=== PATIENT | female | born 1990 | race Caucasian/White ===

== ENCOUNTER 2021-12-12 11:25 | Inpatient (IN) | payer OTHER ==
[2021-12-12] MEDS ORDERED: ELECTROLYTE-148 SOLN 1,000 ML IV SCH (12:30)
[2021-12-12 12:38] VITALS: BMI 29.9
[2021-12-12] MEDS ORDERED: CITRIC ACID/SODIUM CITRATE 30 ML UNIT-DOSE CUP PO ONE (13:11)
[2021-12-12] MEDS ORDERED: morphine SULFATE (PF) 1 MG/2 ML SYRINGE ONE (13:24)
[2021-12-12] MEDS ORDERED: PHENYLEPHRINE HCL 10 MG/1 ML SINGLE DOSE VIAL ONE (13:27)
[2021-12-12] MEDS ORDERED: ePHEDrine SULFATE 50 MG/1 ML AMPULE ONE (13:51)
[2021-12-12] MEDS ORDERED: ACETAMINOPHEN 325 MG TABLET (FP) PO PRN (14:15)
[2021-12-12] MEDS ORDERED: IBUPROFEN 800 MG/8 ML IJ IVPB PRN (14:15)
[2021-12-12] MEDS ORDERED: METHYLERGONOVINE MALEATE 0.2 MG/1 ML AMP IM PRN (14:15)
[2021-12-12] MEDS ORDERED: OXYTOCIN 20 UNITS in 0.9% NS 20 UNIT/1,000 ML INFUS.BAG IV ONE (14:27)
[2021-12-12] MEDS ORDERED: morphine SULFATE/PF 1 MG/2 ML (2cc Syringe - QUVA) EP ONE (14:29)
[2021-12-12] MEDS: OXYTOCIN 20 UNITS in 0.9% NS 20 UNIT/1,000 ML INFUS.BAG IV SCH ×2 (14:30→21:34)
[2021-12-12] MEDS ORDERED: ONDANSETRON 4 MG/2 ML VIAL IVPUSH PRN (14:31)
[2021-12-12] MEDS ORDERED: MISOPROSTOL 200 MCG TABLET ONE (17:40)
[2021-12-12] MEDS ORDERED: MISOPROSTOL 100 MCG TABLET ONE (17:40)
[2021-12-12] MEDS ORDERED: MISOPROSTOL 200 MCG TABLET PO ONE (17:40)
[2021-12-12] MEDS ORDERED: CARBOPROST TROMETHAMINE 250 MCG/ML AMPUL IM ONE (19:45)
[2021-12-12] MEDS: FERROUS SO4 325 MG TABLET (FP) PO SCH (21:44)
[2021-12-13] MEDS ORDERED: LOPERAMIDE HCL 2 MG CAPSULE PO ONE (01:10)
[2021-12-13] MEDS ORDERED: oxyCODONE HCL 5 MG TABLET PO PRN (02:15)
[2021-12-13] MEDS ORDERED: FLU VACC QS2022-23(6MOS UP)/PF 60 MCG/0.5 ML SYRINGE IM ONE (10:00)
[2021-12-13] MEDS ORDERED: DIPHTH,PERTUSS(ACELL),TET 0.5 ML DISP.SYRIN IM ONE (10:00)
[2021-12-13 10:10] LABS: BASO % 0.2 % (0-2.0); EOS % 0.3 % (0-4.5); HEMATOCRIT 40.4 % (32.4-45.2); HEMOGLOBIN 13.5 GM/dL (10.7-15.3); LYMPH % 15.5 % (8-40); MCH 29.7 pg (25.7-33.7); MCHC 33.5 g/dl (32.0-36.0); MEAN CELL VOLUME 88.4 fl (80-96); MEAN PLT VOLUME 8.2 fl (7.5-11.1); MONO % 6.5 % (3.8-10.2); NEUT % 77.5 % (42.8-82.8); PLATELET COUNT 198 10^3/uL (134-434); RBC 4.57 M/mm3 (3.60-5.2); RDW 15.2 % (11.6-15.6); WHITE BLOOD COUNT 11.4 K/mm3 (4.0-10.0)
[2021-12-13] MEDS: PRENATAL VITAMINS W/ FOLIC ACID TABLET (FP) PO SCH (10:14)
[2021-12-13] MEDS: FERROUS SO4 325 MG TABLET (FP) PO SCH ×2 (10:14→22:35)
[2021-12-13] MEDS ORDERED: BISACODYL 10 MG SUPP.RECT RC PRN (14:15)
[2021-12-13] MEDS: IBUPROFEN 600 MG TABLET (FP) PO PRN ×2 (15:29→19:52)
[2021-12-13] MEDS: SIMETHICONE 80 MG TAB.CHEW (FP) PO PRN ×2 (15:29→19:52)
[2021-12-14] MEDS: PRENATAL VITAMINS W/ FOLIC ACID TABLET (FP) PO SCH (09:34)
[2021-12-14] MEDS: SIMETHICONE 80 MG TAB.CHEW (FP) PO PRN ×2 (09:34→17:04)
[2021-12-14] MEDS: FERROUS SO4 325 MG TABLET (FP) PO SCH ×2 (09:34→21:11)
[2021-12-14] MEDS: IBUPROFEN 600 MG TABLET (FP) PO PRN ×3 (09:34→21:14)
[2021-12-14 23:20] VITALS: RESP 18
[2021-12-15 08:05] LABS: BASO % 0.5 % (0-2.0); EOS % 2.3 % (0-4.5); HEMATOCRIT 41.4 % (32.4-45.2); HEMOGLOBIN 13.8 GM/dL (10.7-15.3); LYMPH % 23.5 % (8-40); MCH 29.7 pg (25.7-33.7); MCHC 33.4 g/dl (32.0-36.0); MEAN CELL VOLUME 88.8 fl (80-96); MEAN PLT VOLUME 7.7 fl (7.5-11.1); MONO % 6.7 % (3.8-10.2); PLATELET COUNT 237 10^3/uL (134-434); RBC 4.66 M/mm3 (3.60-5.2); RDW 14.7 % (11.6-15.6); WHITE BLOOD COUNT 7.6 K/mm3 (4.0-10.0)
[2021-12-15] MEDS: IBUPROFEN 600 MG TABLET (FP) PO PRN (09:23)
[2021-12-15] MEDS: PRENATAL VITAMINS W/ FOLIC ACID TABLET (FP) PO SCH (09:23)
[2021-12-15] MEDS: SIMETHICONE 80 MG TAB.CHEW (FP) PO PRN (09:23)
[2021-12-15] MEDS: FERROUS SO4 325 MG TABLET (FP) PO SCH (09:23)
[2021-12-15 10:33] VITALS: BP 92/57; PULSE 72; TEMP 97.9
== END 2021-12-15 14:05 | disposition home or self-care (01) | DRG 540 ==
LOC: JLDR 11:25 → J3W 20:20
PROVIDERS: ADMIT Obstetrics & Gynecology; ATTEND Obstetrics & Gynecology
PROC: 10D00Z1 Extraction of Products of Conception, Low, Open Approach (ICD-10-PCS; principal; 2021-12-12)
DX: O82 Encounter for cesarean delivery without indication (principal); O34.211 Maternal care for low transverse scar from previous cesarean delivery; Z3A.37 37 weeks gestation of pregnancy; Z37.0 Single live birth
CPT/HCPCS: 36415; 80053; 85025; 85610; 86780; 86850; 86900; 86901; 88307-TC; 90715; C9803-CS; Q2036; U0003; U0005